=== PATIENT | female | born 1980 | race Hispanic/Latino ===

== ENCOUNTER 2023-05-13 06:37 | Day surgery (SDC) | payer BC ==
[2023-05-09 11:12] LABS: BASOPHILS # (AUTO) 0.03 K/uL (0.00-0.20); BASOPHILS % (AUTO) 0.4 % (0.0-5.0); EOSINOPHILS # (AUTO) 0.11 K/uL (0.00-0.70); EOSINOPHILS % (AUTO) 1.3 % (0.0-8.0); HEMATOCRIT 43.6 % (36-48); IMMATURE GRANULOCYTE ABSOLUTE 0.04 K/uL (0-1); LYMPHOCYTES # (AUTO) 2.9 K/uL (1.0-4.8); LYMPHOCYTES % (AUTO) 34.6 % (21.0-51.0); MEAN CORPUSCULAR HEMOGLOBIN 29.3 pg (27.0-33.0); MEAN CORPUSCULAR HGB CONC 33.9 g/dL (32.0-36.0); MEAN CORPUSCULAR VOLUME 86.3 fL (79-99); MONOCYTES # (AUTO) 0.5 K/uL (0.1-1.0); MONOCYTES % (AUTO) 5.4 % (3.0-13.0); NEUTROPHILS # (AUTO) 4.8 K/uL (1.8-7.7); NEUTROPHILS % (AUTO) 57.8 % (40.0-77.0); PLATELET COUNT (AUTO) 339 K/uL (130-400); RED BLOOD CELL COUNT(AUTO) 5.05 MIL/uL (4.00-5.50); RED CELL DISTRIBUTION WIDTH 12.7 % (11.0-15.5); WHITE BLOOD COUNT (AUTO) 8.3 K/uL (4.8-10.8)
[2023-05-09 11:20] LABS: CREATININE 0.8 mg/dL (0.5-1.5); POTASSIUM 4.3 mmol/L (3.5-5.1)
[2023-05-09 11:34] VITALS: BP 181/68; PULSE 81; RESP 15
[~2023-05-13] VITALS: Ht 162.6 cm; Wt 117.3 kg
[2023-05-13] VITALS (19 sets, daily range): BP systolic 122–144; BP diastolic 55–87; PULSE 86–132; RESP 16–20
[~2023-05-13 06:37] MED LIST: ETHI1TAB18 PO; IRON PO; VITAMIN B 12 PO; VITAMIN D PO
[2023-05-13] MEDS ORDERED: LACTATED RINGERS 1000ML 1,000 ML IV ONE (07:02)
[2023-05-13] MEDS ORDERED: CEFAZOLIN SODIUM 2 GM VIAL ONE (07:02)
[2023-05-13] MEDS ORDERED: CEFAZOLIN SODIUM 1 GM VIAL ONE (07:12)
[2023-05-13] MEDS ORDERED: IOHEXOL-350 50ML VIAL IV ONE (08:11)
[2023-05-13] MEDS ORDERED: BUPIVACAINE/PF 0.25% 30ML VIAL IJ ONE ×2 (08:13→08:25)
[2023-05-13] MEDS ORDERED: LIDOCAINE PF 100MG/5ML (2%) SYRINGE 5ML ONE (09:22)
[2023-05-13] MEDS ORDERED: KETAMINE 50MG/ML SYRINGE 50 MG/ML DISP.SYRIN ONE (09:23)
[2023-05-13] MEDS ORDERED: ROCURONIUM BROMIDE 10MG/1ML 5ML VL ONE ×2 (09:23→10:08)
[2023-05-13] MEDS ORDERED: FENTANYL CITRATE PF 50 MCG/1 ML 2ML VIAL ONE ×3 (09:23→11:31)
[2023-05-13] MEDS ORDERED: PROPOFOL 10 MG/ML 20ML VIAL IV ONE (09:23)
[2023-05-13] MEDS ORDERED: MIDAZOLAM HCL 1 MG/ML 2ML VIAL ONE (09:23)
[2023-05-13] MEDS ORDERED: DEXAMETHASONE SOD PHOSPHATE 10MG/ML 1ML VIAL ONE (09:38)
[2023-05-13] MEDS ORDERED: ONDANSETRON 4MG INJ ONE ×2 (09:38→11:15)
[2023-05-13] MEDS ORDERED: NEOSTIGMINE METHYLSULFATE 1MG/ML IV ONE (10:50)
[2023-05-13] MEDS ORDERED: GLYCOPYRROLATE 0.2 MG/ML 5 ML VIAL ONE (10:50)
[2023-05-13] MEDS ORDERED: MEPERIDINE-PF 25 MG/ML SYG ONE (11:16)
== END 2023-05-13 13:30 | disposition home or self-care (01) ==
LOC: DAH 06:37 → ENDO 06:37
PROVIDERS: ATTEND Surgery
DX: K80.10 Calculus of gallbladder with chronic cholecystitis without obstruction (principal); K66.0 Peritoneal adhesions (postprocedural) (postinfection); E66.01 Morbid (severe) obesity due to excess calories; K76.0 Fatty (change of) liver, not elsewhere classified; K21.9 Gastro-esophageal reflux disease without esophagitis; Z90.49 Acquired absence of other specified parts of digestive tract; Z72.89 Other problems related to lifestyle; Z68.41 Body mass index [BMI] 40.0-44.9, adult
CPT/HCPCS: 86900 ×2; 80048; 84703; 85025; 86850 ×2; 86901 ×2; 36415 ×2; 47563; 81025; 88304; 74300; A6260; A4663; J7030; A4215 ×2; C1758; J7120; J3010 ×3; J0690 ×2; J1100; J0665 ×2; J3490 ×4; J2001; J2250; J2704; J2405 ×2; J2710; J2175; Q9967; C1769 ×3; A4649 ×2; A4223; A4213; A4222; A4221; A4600; G0168